=== PATIENT | male | born 1925 | race Caucasian/White ===

== ENCOUNTER 2016-12-05 18:32 | Emergency (ER) | payer MEDICARE ==
[~2016-12-05] VITALS: Ht 177.8 cm; Wt 70.3 kg
[2016-12-05 18:57] VITALS: BP 90/45
[2016-12-05 19:37] LABS: ALANINE AMINOTRANSFERASE 20 U/L (3-41); ALBUMIN/GLOBULIN RATIO 0.7 (1.0-2.7); ANION GAP 29 (5-15); ASPARTATE AMINO TRANSFERASE 33 U/L (5-40); CALCIUM 9.3 mg/dL (8.6-10.2); CARBON DIOXIDE 15 mEQ/L (20-30); CHLORIDE 111 mEQ/L (98-107); CREATININE 4.9 mg/dL (0.7-1.2); HEMOLYSIS 7; SODIUM 155 mEQ/L (135-145); TOTAL PROTEIN 6.2 g/dL (6.6-8.7)
[2016-12-05 19:56] LABS: TROPONIN I 0.45 ng/mL (<=0.30)
[2016-12-05 19:58] LABS: REFLEX LACTIC ACID YES OR NO YES
[2016-12-05 20:14] LABS: BILIRUBIN,DIRECT 0.5 mg/dL (0.1-0.3)
[2016-12-05] MEDS ORDERED: Acetaminophen 650 MG SUPP RECTAL ONE (20:15)
[2016-12-05] MEDS ORDERED: Azithromycin 500 MG in NS 275 ML IV ONE (20:15)
[2016-12-05] MEDS ORDERED: Cefepime HCl 1 GM in NS 55 ML IV ONE (20:15)
[2016-12-05 20:25] LABS: CKMB 2.6 ng/mL (< 6.7)
[2016-12-05] MEDS ORDERED: ACETAMINOPHEN120 MG RECTAL (20:31)
[2016-12-05] MEDS ORDERED: Cefepime 1gm vial ONE (20:34)
[2016-12-05] MEDS ORDERED: ACETAMINOPHEN325 M1 RECTAL (20:36)
[2016-12-05] MEDS ORDERED: METOPROLOL TART50 M1 ORAL (20:44)
[2016-12-05] MEDS ORDERED: LORAZEPAM0.5 MG ORAL (20:48)
[2016-12-05 20:57] VITALS: BP 84/44
[2016-12-05] MEDS ORDERED: Azithromycin Inj IV ONE (21:14)
[2016-12-05 22:10] LABS: MEAN CORPUSCULAR HEMOGLOBIN 35.1 PG (27.0-31.0); MEAN CORPUSCULAR HGB CONC 35.4 G/DL (32.0-36.0); MEAN CORPUSCULAR VOLUME 99 FL (80-99); RED BLOOD COUNT 2.34 M/UL (4.70-6.10)
[2016-12-05 22:38] LABS: PLATELET COUNT 24 K/UL (150-450)
[2016-12-05 22:39] LABS: PATH BLOOD SMEAR/OMC SENT TO PATHOLOGIST
[2016-12-05 22:57] VITALS: BP 70/41
--- NOTE | 2016-12-05 23:37 | Emergency Room Report ---
History of Present Illness General Chief Complaint: Altered Level of Consciousness Source: Family Member, EMS, Caregiver Present Illness HPI 89-year-old male presents ED for evaluation. Per EMS nursing from SNF called because patient was altered with fever times one day. Tachycardic. Hypotensive. Patient is unable to provide any additional history at this time. Geography Professor at bedside states patient is DO NOT RESUSCITATE. No reported chest pain or shortness of breath. No other aggravating or relieving factors. No other associated symptoms Allergies: Coded Allergies: No Known Allergies (Unverified , 12/05/16) Patient History Past Medical History: HTN, dementia, other - leukemia Past Surgical History: none Pertinent Family History: none Social History: Denies: alcohol use, drug use, smoking Immunizations: UTD Reviewed Nursing Documentation: PMH: Agreed, PSxH: Agreed Nursing Documentation-PMH Past Medical History: No History, Except For Hx Hypertension: Yes Hx Cancer: Yes - myeloid leukemia History Of Psychiatric Problem: Yes - dementia Review of Systems All Other Systems: negative except mentioned in HPI Physical Exam Vital Signs Date Time Temp Pulse Resp B/P Pulse Ox O2 Delivery O2 Flow Rate FiO2 12/05/16 18:25 128 42 90/45 93 Non-Rebreather 12/05/16 18:57 101.2 15.0 Sp02 EP Interpretation: reviewed, normal General Appearance: cachetic, thin Head: normocephalic Eyes: bilateral eye PERRL, bilateral eye normal inspection ENT: normal ENT inspection Neck: normal inspection Respiratory: crackles Cardiovascular #1: no edema, tachycardia Gastrointestinal: normal inspection Rectal: deferred Genitourinary: no CVA tenderness Musculoskeletal: normal inspection Neurologic: other - dementia Psychiatric: other - dementia Skin: normal inspection Lymphatic: normal inspection Medical Decision Making Diagnostic Impression: Primary Impression: Septic shock Additional Impressions: Pneumonia Qualified Codes: J18.9 - Pneumonia, unspecified organism Leukemia Qualified Codes: C95.92 - Leukemia, unspecified, in relapse Elevated troponin ER Course Hospital Course 89-year-old male presenting to ED with fever, altered, hypotension Differential diagnoses include: Pneumonia, UTI, sepsis, dehydration, MD/ unstable angina Clinical course Patient placed on stretcher. On director of cardiac rehabilitation. After initial history and physical, I ordered labs, IV fluids, EKG, chest x-ray, blood cultures, UA. Labs - significant leukocytosis, troponins 0.45, lactate > 9 EKG - no acute changes, CXR - bilateral infiltrates Abx given. Despite 30 mL per KG fluid bolus patient BP is dropping I discussed case with neelaine/power of trademark attorney Nneka Brown; she agrees that patient's poor prognosis and likely relapse of his leukemia patient should not be resuscitated further telephone consent was made for POLST to be changed to DO NOT RESUSCITATE, comfort care only I explained to the niece that prognosis is extremely poor and patient may tonight Case discussed with Dr Mccurdy and they agreed to admit patient to their service for further care and support I feel this is a highly complex case requiring extensive working including EKG/ Rhythm strip, Xray/CT/US, Blood/urine lab work, repeat exams while in ED, and administration of strong opiates/narcotics for pain control, admission to hospital or close patient follow up. Diagnosis - septic shock, pneumonia, leukemia, elevated troponin Patient admitted to telemetry in critical condition Labs Test 12/05/16 18:50 12/05/16 21:15 Sodium Level 155 mEQ/L (135-145) Potassium Level 4.0 mEQ/L (3.4-4.9) Chloride Level 111 mEQ/L (98-107) Carbon Dioxide Level 15 mEQ/L (20-30) Anion Gap 29 (5-15) Blood Urea Nitrogen 67 mg/dL (7-23) Creatinine 4.9 mg/dL (0.7-1.2) Estimat Glomerular Filtration Rate mL/min (>60) Glucose Level 121 mg/dL (74-106) Lactic Acid Level 9.60 mmol/L (0.66-2.22) 11.50 mmol/L (0.66-2.22) Calcium Level 9.3 mg/dL (8.6-10.2) Total Bilirubin 1.4 mg/dL (0.0-1.2) Direct Bilirubin 0.5 mg/dL (0.1-0.3) Aspartate Amino Transf (AST/SGOT) 33 U/L (5-40) Alanine Aminotransferase (ALT/SGPT) 20 U/L (3-41) Alkaline Phosphatase 112 U/L (40-129) Total Creatine Kinase 238 U/L (38-174) Creatine Kinase MB 2.6 ng/mL (< 6.7) Creatine Kinase MB Relative Index 1.0 Troponin I 0.45 ng/mL (<=0.30) Pro-B-Type Natriuretic Peptide 36753 pg/mL (0-450) Total Protein 6.2 g/dL (6.6-8.7) Albumin 2.6 g/dL (3.5-5.2) Globulin 3.6 g/dL Albumin/Globulin Ratio 0.7 (1.0-2.7) White Blood Count 306.0 K/UL (4.8-10.8) Red Blood Count 2.34 M/UL (4.70-6.10) Hemoglobin 8.2 G/DL (14.2-18.0) Hematocrit 23.2 % (42.0-52.0) Mean Corpuscular Volume 99 FL (80-99) Mean Corpuscular Hemoglobin 35.1 PG (27.0-31.0) Mean Corpuscular Hemoglobin Concent 35.4 G/DL (32.0-36.0) Red Cell Distribution Width 20.0 % (11.6-14.8) Platelet Count 24 K/UL (150-450) Mean Platelet Volume 7.0 FL (6.5-10.1) Neutrophils (%) (Auto) % (45.0-75.0) Lymphocytes (%) (Auto) % (20.0-45.0) Monocytes (%) (Auto) % (1.0-10.0) Eosinophils (%) (Auto) % (0.0-3.0) Basophils (%) (Auto) % (0.0-2.0) EKG Diagnostic Results Rate: tachycardiac Rhythm: NSR ST Segments: no acute changes ASA given to the pt in ED: No Rhythm Strip Diag. Results EP Interpretation: yes Rhythm: NSR, no PVC's, no ectopy Chest X-Ray Diagnostic Results EP Interpretation: Yes Findings: no pneumothorax, no acute cardiopulmonary disease, other - builateral infiltrates Number of Views: 1 Last Vital Signs Date Time Temp Pulse Resp B/P Pulse Ox O2 Delivery O2 Flow Rate FiO2 12/05/16 20:57 101.1 101 35 84/44 93 Non-Rebreather 15.0 Status: unchanged Disposition: ADMITTED INPATIENT Condition: Critical Referrals: Eugenia Mccurdy MD (PCP) ASHOK VELÁSQUEZ M.D. Dec 05, 2016 23:37
[2016-12-05 23:38] VITALS: BP 64/39
--- NOTE | 2016-12-06 04:28 | History and Physical Report ---
DATE OF ADMISSION: 12/05/2016 The patient is a 89-year-old woman, well known to me because [facility] wanted the patient to go to the hospital. 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 I have spoken with Maya at [facility] as well as with Dr. Tyson that knows this patient very well. We have all decided to give the comfort care given the patient's advanced dementia, advanced age, and comorbid condition and the plan was to put him on hospice in the next couple of days. However, at this point, the patient was not on hospice and the family wanted to bring the patient to the ER because the patient has fever of 101 and again the family has reiterated to Dr. Sun, the ER doctor that they do not want any pressors. They want comfort care at this point and the patient is full DNR. The patient is hypotensive. The patient is also being admitted for acute renal failure, extreme leukocytosis due to AML. The patient is also hypotensive. 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 The patient has GERD, history of diabetes, history of hypertension, and history of advanced dementia. PAST SURGICAL HISTORY: Denied. ALLERGIES: None known. MEDICATIONS: At this point on minimal medication. REVIEW OF SYSTEMS: Unable to obtain. The patient is lethargic. PHYSICAL EXAMINATION: VITAL SIGNS: Temperature is 99 degrees and blood pressure 69/42. HEENT: Pupils are reactive to light. CHEST: Clear to auscultation. CARDIOVASCULAR: Regular rate and rhythm. GASTROINTESTINAL: Soft. Positive bowel sounds. NEUROLOGIC: The patient is lethargic, responsive to noxious deep stimuli. LABORATORY DATA: Significant for WBC of 206,000, hemoglobin of 8.2, and platelets are pending. Sodium of 155, potassium of 4, BUN of 67, creatinine of 4.9, and glucose of 121. Troponin 0.45. ASSESSMENT AND PLAN: 1. AML. 2. Acute renal failure. 3. Hypernatremia. 4. Dehydration. 5. Hypotensive. 6. Fever. 7. Sepsis. 8. Elevated troponin. I have asked Dr. Tyson, Dr. Elliott, Dr. Lujan, Dr. Marcus, Dr. Lozada to see the patient. The patient is on complete comfort care and DNR. The patient is in the dying stage, terminal stage. Family is aware of it and that is why they want us to give complete comfort care, but they are okay with IV fluids and potential IV antibiotics at this point. They are leaning towards hospice. Eugenia Mccurdy M.D. DR: ARNALDO JOB#: [id number] CC:
[2016-12-06 08:18] LABS: ANISOCYTOSIS 1+; BLAST% 97 % (0-0); HYPOCHROMASIA 1+; LYMPHOCYTES % (MANUAL) 1 % (20-45); MYELOCYTES % 1 % (0-0); NEUTROPHILS % (MANUAL) 1 % (45-75); TOTAL CELLS COUNTED 100
[2016-12-06 08:19] LABS: BAND NEUTROPHILS % (MANUAL) 0 % (0-8); BASOPHILS % (MANUAL) 0 % (0-2); EOSINOPHILS % (MANUAL) 0 % (0-3); PLATELET ESTIMATE DECREASED; PLATELET MORPHOLOGY NORMAL
[2016-12-06 08:21] LABS: OTHERS PATHOLOGIST COMMENT
--- NOTE | 2016-12-06 10:01 | Diagnostic Imaging Report ---
Indication: Shortness of breath Technique: One view of the chest Comparison: None Findings: There Are bilateral mid and lower lung infiltrates. No definite effusions. The heart is mildly enlarged. Patient is rotated to the left. The aorta is tortuous and calcified Impression: Bilateral mid and lower lung infiltrates, nonspecific but concerning for pneumonia. Correlate with clinical findings
--- NOTE | 2016-12-06 18:32 | Cardiology Report ---
APPROVED REPORT EKG Measurement Heart [id number] HI [id number] N[address] abnormality Abnormal ECG
== END 2016-12-05 23:38 | disposition expired ==
LOC: EDBD 18:32 → EMR 18:59 → UNDOADMIN 19:08 → 2E 19:08 → EDBEDREQ 21:33
DX: A41.9 Sepsis, unspecified organism (principal); R65.21 Severe sepsis with septic shock; J18.9 Pneumonia, unspecified organism; Z66 Do not resuscitate; I10 Essential (primary) hypertension; C92.90 Myeloid leukemia, unspecified, not having achieved remission; F03.90 Unspecified dementia, unspecified severity, without behavioral disturbance, psychotic disturbance, mood disturbance, and anxiety; R79.89 Other specified abnormal findings of blood chemistry; N17.9 Acute kidney failure, unspecified; E87.0 Hyperosmolality and hypernatremia; E86.0 Dehydration; I95.9 Hypotension, unspecified; Z51.5 Encounter for palliative care; R51 Headache
CPT/HCPCS: 36415; 71010; 80053; 82248; 82550; 82553; 83605; 83880; 84484; 85007; 85025; 85060; 87040; 93005; 96360; 96374; 96375; 99285; J0456; J0692; J7050